=== PATIENT | male | born 1965 | race Caucasian/White ===

== ENCOUNTER 2019-02-03 13:42 | Observation (INO) ==
[2019-02-03] MEDS ORDERED: VANCOMYCIN IV PER PHARMACY MISC SCH (14:15)
[2019-02-03] MEDS: BACTROBAN OINTMENT TOP SCH ×2 (16:35→21:10)
[2019-02-03] MEDS: VANCOMYCIN 2,000 MG in NS 500 ML IV SCH (16:35)
[2019-02-04] MEDS: VANCOMYCIN 2,000 MG in NS 500 ML IV SCH ×2 (04:05→15:30)
--- NOTE | 2019-02-04 04:45 | HISTORY AND PHYSICAL ---
HISTORY OF PRESENT ILLNESS: A 53-year-old male who presented to the office the day of admission with a large blister on the end of his nose and hot red cheeks that had just developed but five days earlier he had developed a rash with blisters on his toes on his left foot between the second and third toe and it was blistered and painful. Hurts to walk. He has had a history of tinea pedis and he has current onychomycosis but the rapidity in which this rash developed suggests something else, perhaps the erysipelas type reaction he is having on his face, and even prior to this the patient's family had strep throats. The patient had had strep throat. He self-treated with some old antibiotics prior to developing the lesions on his foot and his face. Reviewed his case with Dermatology who feels like it probably all is related to this cellulitis and erysipelas. He has no known allergies. First he presented to the office. Lab was ordered there. His blood count was a bit high. His vital signs when he arrived in the room, temperature was 98, pulse was 105, respiratory rate 20, blood pressure 156/82, 100% 02 on room air. Head was normocephalic. Oropharynx was slightly erythematous. Neck without bruits, without lymphadenopathy. Midline trachea. Warm to touch calero red cheeks. Neck was supple. Chest bilaterally clear PAST MEDICAL HISTORY: His past medical history is unremarkable other than his hypertension, his diabetes and dyslipidemia. MEDICATIONS: He is on Trulicity, one dose weekly, fenofibrate 145 daily, glimepiride 4 p.o. b.i.d., Losartan 100 daily, metformin 500 b.i.d., Bystolic 10, simvastatin 40, testosterone cypionate 250, Acyclovir 1000 p.o. t.i.d. ALLERGIES: He has no known allergies. SOCIAL HISTORY: He is an ex-smoker. PHYSICAL EXAMINATION: VITAL SIGNS: His vital signs when he arrived in the room, temperature was 98, pulse was 105, respiratory rate 20, blood pressure 156/82, 100% 02 on room air. HEENT: Head was normocephalic. Oropharynx was slightly erythematous. NECK: Neck without bruits, without lymphadenopathy. Midline trachea. Warm to touch calero red cheeks. Neck was supple. Midline trachea. No lymphadenopathy. CHEST: Bilaterally clear breath sounds. CARDIOVASCULAR: Regular rhythm and rate. ABDOMEN: Soft. No hepatosplenomegaly. No CVA tenderness. EXTREMITIES: Good pulses on his left foot. His third toe has been blistered and now has healing blisters on that entire toe between two and three. NEUROLOGICAL: Intact. He had several previous problems. He is a diabetic. After reviewing it with the english as a second language instructor we felt that it would be prudent to use vancomycin. We are going to start vancomycin and culture his nasal discharge to see what is going on with that and then make some other antibiotic selections thereafter. cc: Sorin Cardenas MD MTDD
[2019-02-04] MEDS: BACTROBAN OINTMENT TOP SCH (09:30)
[2019-02-04] MEDS ORDERED: BYSTOLIC PO SCH (11:15)
[2019-02-04 16:25] VITALS: BP 160/84
--- NOTE | 2019-02-28 11:54 | PROGRESS NOTE ---
DATE: 02/05/2019 A 53-year-old, diabetic, hypertensive man admitted with facial erysipelas and placed on IV antibiotics. His lesions have not progressed. They may be somewhat better. He is not as toxic feeling. His vital signs were stable. cc: Sorin Cardenas MD
--- NOTE | 2019-02-28 12:48 | DISCHARGE SUMMARY ---
ADMISSION DATE: 02/03/2019 DISCHARGE DATE: 02/04/2019 HISTORY OF PRESENT ILLNESS: The patient presented as a 53-year-old male who had developed some lesions between his toes that he thought was athlete's foot. Subsequently he developed a redness to his cheeks, forehead and his nose and then subsequently a blister on the top of his nose, all suggestive of erysipelas. I think he was too ill for this to be anything else. He was admitted for IV therapy. He is a diabetic who is on Trulicity, metformin, glimepiride, fenofibrate, and he also is on acyclovir that he has been taking for a few days. PHYSICAL EXAMINATION: VITAL SIGNS: Early in the hospital, his blood pressure was 156/82, O2 saturation was 100% on room air, respiratory rate was 20, pulse was 105, temperature was 98. HEENT: Head was normocephalic, but he had just bright red cheeks, forehead and chin with a quarter size blister on his nose and some scaling blisters and crusty lesion between toes of one of his feet. HOSPITAL COURSE: We admitted him for IV therapy for presumed erysipelas. On his culture data, the wound grew out Streptococcus pyogenes group A strep. His symptoms began to improve over the days he was in the hospital. He was receiving vancomycin, and his symptoms improved significantly. We discharged him on antibiotics that included levofloxacin to which the infection was sensitive. Blister was popped and cultures, giving the Streptococcus pyogenes. Hospital course was otherwise unremarkable. He was discharged, to follow up in a couple of days in the office. cc: Sorin Cardenas MD
== END 2019-02-04 17:50 | disposition home or self-care (01) ==
LOC: P.DIRADM → P.MEDSURG 13:42
PROVIDERS: ADMIT Internal Medicine; ATTEND Internal Medicine